=== PATIENT | female | born 1990 | race Caucasian/White ===

== ENCOUNTER 2016-10-27 10:40 | Emergency (ER) | payer OTHER, BC ==
[~2016-10-27] VITALS: Ht 175.3 cm; Wt 70.0 kg
[~2016-10-27 10:40] MED LIST: ORTHO TRI-CY PO; PEPCID20 MG PO
[2016-10-27] MEDS ORDERED: SINGULAIR10 MG PO (10:48)
[2016-10-27] MEDS ORDERED: ENSKYCE1 TAB PO (11:18)
[2016-10-27] MEDS ORDERED: ZOFRAN4 MG/TAB PO (11:19)
[2016-10-27 12:11] VITALS: BP 129/78
== END 2016-10-27 12:12 | disposition home or self-care (01) | DRG 914 ==
LOC: ED 10:40
DX: S09.93XA Unspecified injury of face, initial encounter (principal); W20.8XXA Other cause of strike by thrown, projected or falling object, initial encounter; Y93.89 Activity, other specified; Y99.0 Civilian activity done for income or pay; Y92.69 Other specified industrial and construction area as the place of occurrence of the external cause